=== PATIENT | female | born 1980 | race Asian ===

== ENCOUNTER → 2020-07-14 | Outpatient (CLI) | payer OTHER ==
[2020-07-15 08:06] LABS: RUBELLA AB IGG-REFLAB 5.12 index (Immune >0.99); RUBEOLA (MEASLES) IGG 44.4 AU/mL (Immune >16.4)
== END | disposition home or self-care (01) ==
LOC: MSR 11:11
PROVIDERS: ATTEND Internal Medicine
DX: Z02.1 Encounter for pre-employment examination (principal); R76.11 Nonspecific reaction to tuberculin skin test without active tuberculosis
CPT/HCPCS: 86706; 86735; 86762; 86765; 86787; 36415-L1; 36415-TC; 71045-TC

== ENCOUNTER 2020-10-16 19:33 | Emergency (ER) | payer OTHER ==
[~2020-10-16] VITALS: Ht 152.4 cm; Wt 50.9 kg
[2020-10-16] MEDS ORDERED: FAMOTIDINE 10 MG/ML 2 ML VIAL IVP ONE (21:15)
[2020-10-16] MEDS ORDERED: PredniSONE 20 MG TABLET PO ONE (21:15)
[2020-10-16] MEDS ORDERED: DiphenhydrAMINE HCL 50 MG/ML VIAL IVP ONE (21:15)
[2020-10-16 22:29] VITALS: BP 154/98
== END 2020-10-16 22:47 | disposition home or self-care (01) ==
LOC: EMS 19:33
DX: L50.0 Allergic urticaria (principal)
CPT/HCPCS: 96374; 96375; 99284; J1200; J3490; J7512